=== PATIENT | female | born 1965 | race Caucasian/White ===

== ENCOUNTER 2018-10-13 15:16 | Emergency (ER) | payer OTHER ==
[2018-10-13 15:51] VITALS: BP 147/92
--- NOTE | 2018-10-13 16:26 | UC ---
General HPI - HPI Summary HPI Summary: pt complains of a 1 week history of productive cough. she states that her ears have been hurting her as well. her kids have been sick. she used her daughter' s inhaler and spacer. it has provided her with some benefit. - History of Current Complaint Chief Complaint: UCRespiratory Stated Complaint: COUGH,CHEST CONGESTION Hx Obtained From: Patient Hx Last Menstrual Period: 07/19/12 Timing: Constant Onset Severity: Mild Current Severity: Mild Pain Intensity: 5 - Allergy/Home Medications Allergies/Adverse Reactions: Allergies Allergy/AdvReac Type Severity Reaction Status Date / Time No Known Allergies Allergy Verified 10/13/18 15:47 Home Medications: Home Medications ALPRAZolam [Xanax] 1 mg DAILY PRN 10/13/18 [History Confirmed 10/13/18] Atorvastatin* [Lipitor*] 20 mg PO QPM 10/13/18 [History Confirmed 10/13/18] PMH/Surg Hx/FS Hx/Imm Hx Previously Healthy: Yes - Surgical History Surgical History: Yes Surgery Procedure, Year, and Place: T&A, RIGHT LEG FRACTURE REPAIR - Social History Alcohol Use: None Substance Use Type: None Smoking Status (MU): Former Smoker Review of Systems All Other Systems Reviewed And Are Negative: Yes Constitutional: Positive: Negative Skin: Positive: Negative Eyes: Positive: Negative ENT: Positive: Sore Throat, Ear Ache, Sinus Congestion Respiratory: Positive: Cough Cardiovascular: Positive: Negative Gastrointestinal: Positive: Negative Genitourinary: Positive: Negative Motor: Positive: Negative Neurovascular: Positive: Negative Musculoskeletal: Positive: Negative Neurological: Positive: Negative Psychological: Positive: Negative Is Patient Immunocompromised?: No Physical Exam - Summary Physical Exam Summary: pt presents for evaluation of her impressive right ear pain and Triage Information Reviewed: Yes Appearance: Well-Appearing, No Pain Distress, Well-Nourished Vital Signs: Initial Vital Signs Temp 98.2 F 10/13/18 15:48 Pulse 86 10/13/18 15:48 Resp 16 10/13/18 15:48 BP 147/92 10/13/18 15:48 Pulse Ox 99 10/13/18 15:48 Vital Signs Reviewed: Yes Eye Exam: Normal ENT: Positive: TM bulging - right, TM dull, TM red - right much worse than left Neck exam: Normal Respiratory: Positive: Rhonchi - very mild and intermittent, Other: - no respiratory distress Cardiovascular Exam: Normal Abdominal Exam: Normal Bowel Sounds: Positive: Present Musculoskeletal Exam: Normal Neurological Exam: Normal Psychological Exam: Normal Course/Dx - Course Course Of Treatment: pt's chest xray shows no pneumonias. she had bronchitis and om. will tx with abx, prednisone, inhaler, spacer. pt encouraged to f/u wi pcp. - Diagnoses Provider Diagnosis: Bronchitis, Otitis media Discharge - Sign-Out/Discharge Documenting (check all that apply): Patient Departure All imaging exams completed and their final reports reviewed: Yes - Discharge Plan Condition: Critical Disposition: HOME Prescriptions: Albuterol HFA INHALER* [Ventolin HFA Inhaler*] 2 puff INH Q4H PRN #1 mdi PRN Reason: Wheezing Azithromyxin TATYANA (NF) [Z-Tatyana (Zithromax) 250 mg tabs #6] 2 tab PO .TODAY, THEN 1 DAILY #6 tab predniSONE TAB* [Deltasone 20 MG TAB*] 60 mg PO DAILY #12 tab Patient Education Materials: Ear Infection (ED), Acute Bronchitis (ED) Forms: *Work Release Referrals: Lion Sharp MD [Primary Care Provider] - Additional Instructions: Take all medications as previously instructed. it is important to follow up with your primary care physician. Use the inhaler with spacer as instructed. - Billing Disposition and Condition Condition: CRITICAL Disposition: Home
== END 2018-10-13 17:01 | disposition home or self-care (01) ==
LOC: UCCORT 15:16
DX: J40 Bronchitis, not specified as acute or chronic (principal); H66.91 Otitis media, unspecified, right ear; Z87.891 Personal history of nicotine dependence
CPT/HCPCS: 71046; 99202; G0463

== ENCOUNTER 2018-10-18 18:20 | Emergency (ER) | payer OTHER ==
[2018-10-18] MEDS ORDERED: NS 0.9% 1000 ML** 1,000 ML IV ONE (18:25)
--- NOTE | 2018-10-18 18:26 | UC ---
UC General HPI - HPI Summary HPI Summary: 52-year-old woman comes in with a chief complaint of near syncope shortness of breath and chest tightness. Patient is sick for more than a week she was on antibiotics. Still feeling quite weak and today she went to work where she almost passed out. On the way here she almost passed out in our waiting room she almost passed out. When she stands up it makes it worse when she lays down makes it better. She's also been short of breath some chest tightness. - History of Current Complaint Stated Complaint: DIFFICULTY BREATHING Time Seen by Provider: 10/18/18 18:22 Hx Last Menstrual Period: 07/19/12 - Allergy/Home Medications Allergies/Adverse Reactions: Allergies Allergy/AdvReac Type Severity Reaction Status Date / Time No Known Allergies Allergy Verified 10/18/18 18:31 PMH/Surg Hx/FS Hx/Imm Hx Previously Healthy: Yes Endocrine History: Hypothyroidism, Dyslipidemia - Surgical History Surgical History: Yes Surgery Procedure, Year, and Place: T&A, RIGHT LEG FRACTURE REPAIR - Family History Known Family History: Positive: Non-Contributory - Social History Alcohol Use: None Substance Use Type: None Smoking Status (MU): Former Smoker Review of Systems All Other Systems Reviewed And Are Negative: Yes Constitutional: Positive: Fatigue, Other - SEE HPI Skin: Positive: Negative Eyes: Positive: Negative ENT: Positive: Negative Respiratory: Positive: Shortness Of Breath Cardiovascular: Positive: Chest Pain Gastrointestinal: Positive: Negative Motor: Positive: Weakness - GENERALIZED Neurovascular: Positive: Negative Musculoskeletal: Positive: Negative Neurological: Positive: Negative Psychological: Positive: Negative Is Patient Immunocompromised?: No Physical Exam Triage Information Reviewed: Yes Appearance: No Pain Distress, Well-Nourished, Ill-Appearing - MILD Vital Signs Reviewed: Yes Eye Exam: Normal Eyes: Positive: Conjunctiva Clear Neck: Positive: Supple Respiratory: Positive: Lungs clear, Normal breath sounds, No respiratory distress Cardiovascular: Positive: RRR Musculoskeletal: Positive: ROM Intact Neurological: Positive: Alert Psychological: Positive: Age Appropriate Behavior Skin Exam: Normal Diagnostics - EKG Cardiac Rate: NL - AT 1827 Cardiac Rhythm: Sinus: Normal - 84BPM Ectopy: None ST Segment: Normal Course/Dx - Course Course Of Treatment: TRANSFERRED TO [facility] BY AMBULANCE. GIVEN ASA 324MG PO IN CLINIC I SPOKE WITH SUSAN IN THE [facility] - Diagnoses Provider Diagnosis: Near syncope, Hypotension, Chest pain Discharge - Sign-Out/Discharge Documenting (check all that apply): Patient Departure All imaging exams completed and their final reports reviewed: No Studies - Discharge Plan Condition: Stable Disposition: TRANS HIGHER LVL OF CARE FAC Referrals: Lion Sharp MD [Primary Care Provider] - - Billing Disposition and Condition Condition: STABLE Disposition: Trans Higher Lvl of Care Fac
[2018-10-18 19:00] VITALS: BP 109/74
[2018-10-18] MEDS ORDERED: Aspirin 81 mg CHEW TAB* 81 MG TAB.CHEW PO SCH (19:00)
[2018-10-18] MEDS ORDERED: Aspirin 81 mg CHEW TAB* 81 MG TAB.CHEW ONE (19:20)
== END 2018-10-18 18:55 | disposition short-term general hospital (02) ==
LOC: UCCORT 18:20
DX: R55 Syncope and collapse (principal); I95.9 Hypotension, unspecified; R07.9 Chest pain, unspecified; Z87.891 Personal history of nicotine dependence
CPT/HCPCS: 93005; 99213; A9270-GY; G0463

== ENCOUNTER 2019-01-15 11:58 | Emergency (ER) | payer OTHER ==
[2019-01-15 13:28] VITALS: BP 144/73
--- NOTE | 2019-01-15 13:45 | UC ---
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 Mid-abd cramping since yesterday. Since last night around 1900 pt noticed more heavy bleeding and feeling light-headed (denies syncope); changed pads x3 yesterday david. Since 0700 today pt states she's going thru tampon/pad about every hour. " -here w/ her -works in a [employer] w/ heavy machinery, sharp objects. areas of high heat. -feels slightly lightheaded when standing up but not always -no clotting +uterine fibroid hx. -feels like menstrual cramps -no rashes -no Fhx AIRPLANE TUBE BUILDER or endoemtrial ca - History Of Current Complaint Chief Complaint: UCAbdominalPain Stated Complaint: PERSONAL Time Seen by Provider: 01/15/19 13:30 Hx Last Menstrual Period: 01/13/19 Pain Intensity: 5 - Allergies/Home Medications Allergies/Adverse Reactions: Allergies Allergy/AdvReac Type Severity Reaction Status Date / Time No Known Allergies Allergy Verified 01/15/19 13:16 PMH/Surg Hx/FS Hx/Imm Hx Previously Healthy: Yes Endocrine History: Thyroid Disease, Dyslipidemia Psychological History: Anxiety - Surgical History Surgical History: Yes Surgery Procedure, Year, and Place: T&A, RIGHT LEG FRACTURE REPAIR - Family History Known Family History: Positive: Other - no AIRPLANE TUBE BUILDER cancer, Non-Contributory Negative: Blood Disorder - Social History Alcohol Use: None Substance Use Type: None Smoking Status (MU): Former Smoker Review of Systems All Other Systems Reviewed And Are Negative: Yes Constitutional: Positive: Negative, Fatigue - slight. Negative: Fever, Chills Skin: Positive: Negative. Negative: Rash Eyes: Positive: Negative ENT: Positive: Negative. Negative: Sore Throat, Ear Ache, Sinus Congestion, Sinus Pain/Tenderness Respiratory: Positive: Negative. Negative: Shortness Of Breath, Cough Cardiovascular: Positive: Negative. Negative: Palpitations, Chest Pain Gastrointestinal: Positive: Abdominal Pain - lower abd menstrual cramping. Negative: Vomiting, Diarrhea, Nausea Genitourinary: Positive: Abnormal Bleeding. Negative: Vaginal/Penile Discharge Motor: Positive: Negative Neurovascular: Positive: Negative. Negative: Decreased Pulses Musculoskeletal: Positive: Negative. Negative: Arthralgia, Calf Tenderness Neurological: Positive: Negative, Other - see above Psychological: Positive: Negative Is Patient Immunocompromised?: No Physical Exam Appearance: Well-Appearing, No Pain Distress, Well-Nourished - very pleasant. good historian Vital Signs: Initial Vital Signs Temp 98 F 01/15/19 13:17 Pulse 65 01/15/19 13:17 Resp 16 01/15/19 13:17 BP 144/73 01/15/19 13:17 Pulse Ox 98 01/15/19 13:17 Vital Signs Reviewed: Yes Eye Exam: Normal Eyes: Positive: Conjunctiva Clear ENT Exam: Normal ENT: Positive: Pharynx normal, TMs normal Neck exam: Normal Neck: Positive: Supple, Nontender, No Lymphadenopathy Respiratory Exam: Normal Respiratory: Positive: Lungs clear, Normal breath sounds, No respiratory distress, No accessory muscle use. Negative: Crackles, Rhonchi, Stridor, Wheezing Cardiovascular Exam: Normal Cardiovascular: Positive: RRR, No Murmur, Pulses Normal, Brisk Capillary Refill Abdomen Description: Positive: No Organomegaly, Other: - mild suprapubic tenderness.. Negative: CVA Tenderness (R), CVA Tenderness (L), Distended, Guarding, Hernia @, Hepatomegaly, McBurney's Point Tenderness, Peritoneal Signs , Pulsatile Mass, Splenomegaly Bowel Sounds: Positive: Present Musculoskeletal Exam: Normal Neurological Exam: Normal Psychological Exam: Normal Skin Exam: Normal Skin: Negative: Rashes Complaint Female Dx - Course Course Of Treatment: Discussed going to ER for further eval w/ US but she feels strongly about not going. 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 she agrees to go to ER with lightheadedmnesssyncope/wprsening bleeding -says she has a responsible teen at home and mom near by. will be going to work. - Differential Dx/Diagnosis Differential Diagnosis/HQI/PQRI: Urinary Tract Infection, Other - abnml uterine bleeding Provider Diagnosis: Abnormal uterine bleeding Discharge ED - Sign-Out/Discharge Documenting (check all that apply): Patient Departure All imaging exams completed and their final reports reviewed: No Studies - Discharge Plan Condition: Stable Disposition: HOME Patient Education Materials: Dysfunctional Uterine Bleeding (ED) Forms: *Work Release Referrals: Lion Sharp MD [Primary Care Provider] - Jesus Bolton MD [Medical Doctor] - 2 Days Additional Instructions: We discussed possibly going to the ER for further evaluation. However, you voiced your preference not to. Please go to the ER (via another ambulette driver or ambulance) if you have more lightheaded or dizzy or if you pass out or your bleeding worsens, become pale, clammy, sweaty. -I am giving you the name of a AIRPLANE TUBE BUILDER to call on Thursday for further evaluation. You will need and ultrasound and an endometrial biopsy. - Billing Disposition and Condition Condition: STABLE Disposition: Home
== END 2019-01-15 14:06 | disposition home or self-care (01) ==
LOC: UCCORT 11:58
DX: N93.8 Other specified abnormal uterine and vaginal bleeding (principal); R10.30 Lower abdominal pain, unspecified; Z87.891 Personal history of nicotine dependence
CPT/HCPCS: 99211; G0463

== ENCOUNTER 2019-02-23 14:14 | Emergency (ER) | payer OTHER ==
--- OUTSIDE RECORDS SUMMARY | 2019-02-23 14:23 | XMS REPORT | Summary of Care ---
:1965 Author Organization [facility] Address [address] [place] [address] Care Team Providers Name Role Phone Lion Sharp MD Primary Care Provider Reason for Referral Refer to Department Only (Routine) Status Reason Specialty Diagnoses / Referred By Referred To Procedures Contact Contact Pending Review budder Diagnoses Post-menopausal bleeding Agata Rios, DIRECTOR OF SPECIAL SERVICES [address] [place] [address] Reason for Visit Reason Comments ER F/U pt [place] [facility] [place] for heavy vaginal bleeding 2-3 days, has not had a period in over a year in a half. Encounter Details Date Type Department Care Team Description 01/18/2019 Office Visit [facility] Agata Rios, Post-menopausal Practice DIRECTOR OF SPECIAL SERVICES bleeding (Primary Dx) [address] [place] [address] [phone] Allergies Active Allergy Reactions Severity Noted Date Comments Amoxicillin 05/26/2007 Cefuroxime Rash 05/26/2007 Niacin Rash, Respiratory Reaction, 06/08/2008 Swelling Paroxetine Hydrochloride 05/26/2007 documented as of this encounter (statuses as of 01/18/2019) Medications Medication Sig Dispensed Refills Start Date End Date Status atorvastatin (LIPITOR) Take 1 Tab by 90 Tab 3 07/06/2018 Active 40 MG Oral Tab mouth DAILY. ALPRAZolam (XANAX) 1 TAKE 1 TABLET BY 30 Tab 0 09/21/2018 Active MG Oral Tab MOUTH ONCE DAILY FOR ANXIETY. MAX DAILY DOSE 1 fluoxetine (PROZAC) 20 TAKE 1 CAPSULE 60 Cap 5 11/16/2018 Active MG Oral BY MOUTH TWICE CapIndications: DAILY Dysthymic disorder levothyroxine Take 1 Tab by 90 Tab 5 11/12/2018 11/12/2019 Active (SYNTHROID\\UNITHROID) mouth BEFORE 100 MCG Oral Tab BREAKFAST. fluoxetine (PROZAC) 20 Take 1 Cap by 60 Cap 5 11/15/2018 Active MG Oral Cap mouth TWICE DAILY. ibuprofen (MOTRIN) 800 Take 1 Tab by 90 Tab 5 11/30/2018 Active MG Oral Tab mouth THREE TIMES DAILY. with food documented as of this encounter (statuses as of 01/18/2019) Active Problems Problem Noted Date BMI 39.0-39.9,adult 12/28/2013 Hypertriglyceridemia 06/08/2008 Unspecified sinusitis (chronic) 05/26/2007 Hypothyroidism 05/26/2007 Depression w/anxiety 05/26/2007 Dyslipidemia 05/26/2007 Lumbar disc disease 05/26/2007 documented as of this encounter (statuses as of 01/18/2019) Resolved Problems Problem Noted Date Resolved Date Cervicalgia 05/26/2007 02/01/2010 Overview: Right sided neck pain Pain in joint, shoulder region 05/26/2007 02/01/2010 Overview: Right sided shoulder pain Nicotine dependence 05/26/2007 02/01/2010 documented as of this encounter (statuses as of 01/18/2019) Immunizations Name Administration Dates Next Due Influenza (IM) Preservative Free 07/06/2018, 02/13/2009 Influenza Virus Vaccine - Whole 03/12/2005 TETANUS & DIPHTHERIA TOXOID (OVER 7 YRS) 07/12/1997 documented as of this encounter Social History Tobacco Use Types Packs/Day Years Used Date Former Smoker Quit: 07/02/2001 Smokeless Tobacco: Never Used Alcohol Use Drinks/Week oz/Week Comments No Sex Assigned at Date Recorded Not on file Job Start Date Occupation Industry Not on file Not on file Not on file Travel History Travel Start Travel End No recent travel history available. documented as of this encounter Last Filed Vital Signs Vital Sign Reading Time Taken Comments Blood Pressure 122/80 01/18/2019 10:45 AM EDT Pulse 74 01/18/2019 10:45 AM EDT Temperature - - Respiratory Rate - - Oxygen Saturation 96% 01/18/2019 10:45 AM EDT Inhaled Oxygen Concentration - - Weight 108.9 kg (240 lb) 01/18/2019 10:45 AM EDT Height 167.6 cm (5' 6") 01/18/2019 10:45 AM EDT Body Mass Index 38.74 01/18/2019 10:45 AM EDT documented in this encounter Patient Instructions Patient InstructionsAgata Rios NP - 01/18/2019 11:00 AM EDTPlease get your blood work done now - I have put the blood count as a stat order so I will call you with these results. You have opted not to go to the ER. Referral in place for gynecology - make this appointment. If you develop any worsening symptoms of dizziness, lightheadedness, loss of vision, increasing headache, confusion, passing out, cold clammy skin, or any other concerning symptoms, please go immediately to the ER. Please have someone pick you up - you should not be driving if lightheaded. documented in this encounter Progress Notes Agata Rios NP - 01/18/2019 11:00 AM EDT PATIENT: Sally Mckoy : 1965 DATE OF SERVICE: 01/18/2019 CHIEF COMPLAINT: Chief Complaint Patient presents with ER F/U pt [place] [facility] [place] for heavy vaginal bleeding 2-3 days, has not had a period in over a year in a half. Subjective HISTORY OF PRESENT ILLNESS: Sally Mckoy is a 53-y.o. female. HPI Went to urgent care thursday for vaginal bleeding - 1.5 years post menopausal. Bleeding since , was heavy, had to leave work because she bled through her clothes, going through 1 tampon/pad every hour. Urgent care wanted her to go to ER but she refused. Today she is feeling exhausted, has not been sleeping well since Thursday. Abdominal cramping, havingto go to the bathroom every hour to change her pad, bad headache x4 days, she feels unfocused, "out of it". She states the only time she has ever bled this heavily was when she had a miscarriage in the past. Today she is not bleeding as heavily, changing pads every 3-4 hours. She is unsure if she has pallor. A little bit of dizziness/lightheadedness now. When she stands up (not every time) she will get a headrush. Bending over to pick something up she gets the headrush. She has a history of uterine fibroids in the past (20+ years ago). Past Medical History: Diagnosis Date Cervicalgia 05/26/2007 Right sided neck pain Depression w/anxiety 05/26/2007 Hyperlipidemia 05/26/2007 Lumbar disc disease 05/26/2007 Nicotine dependence 05/26/2007 STOPPED 8YRS AGO Osteoarthrosis, unspecified whether generalized or localized, lower leg Other abnormal Papanicolaou smear of cervix and cervical HPV(795.09) 1991 Pain in joint, shoulder region 05/26/2007 Right sided shoulder pain , first 36 Unspecified hypothyroidism 05/26/2007 Unspecified sinusitis (chronic) 05/26/2007 Family History Problem Relation Age of Onset High Cholesterol Mother Respiratory Mother Heart Father High Cholesterol Father Respiratory Father High Cholesterol Brother Current Outpatient Medications Medication Sig ALPRAZolam (XANAX) 1 MG Oral Tab TAKE 1 TABLET BY MOUTH ONCE DAILY FOR ANXIETY. MAX DAILY DOSE 1 atorvastatin (LIPITOR) 40 MG Oral Tab Take 1 Tab by mouth DAILY. fluoxetine (PROZAC) 20 MG Oral Cap TAKE 1 CAPSULE BY MOUTH TWICE DAILY fluoxetine (PROZAC) 20 MG Oral Cap Take 1 Cap by mouth TWICE DAILY. ibuprofen (MOTRIN) 800 MG Oral Tab Take 1 Tab by mouth THREE TIMES DAILY. with food levothyroxine (SYNTHROID\\UNITHROID) 100 MCG Oral Tab Take 1 Tab by mouth BEFORE BREAKFAST. No current facility-administered medications for this visit. Allergies Allergen Reactions Amoxicillin Cefzil [Cefuroxime] Rash Niacin Rash, Respiratory Reaction and Swelling Paxil [Paroxetine Hydrochloride] Social History Socioeconomic History Marital status: Spouse name: Not on file Number of children: Not on file Years of education: Not on file Highest education level: Not on file Occupational History Not on file Social Needs Financial resource strain: Not on file Food insecurity: Worry: Not on file Inability: Not on file Transportation needs: Medical: Not on file Non-medical: Not on file Tobacco Use Smoking status: Former Smoker Last attempt to quit: 07/02/2001 Years since quittin.5 Smokeless tobacco: Never Used Substance and Sexual Activity Alcohol use: No Drug use: No Sexual activity: Yes Partners: Male Lifestyle Physical activity: Days per week: Not on file Minutes per session: Not on file Stress: Not on file Relationships Social connections: Talks on phone: Not on file Gets together: Not on file Attends latter-day service: Not on file Active member of club or organization: Not on file Attends meetings of clubs or organizations: Not on file Relationship status: Not on file Intimate partner violence: Fear of current or ex partner: Not on file Emotionally abused: Not on file Physically abused: Not on file Forced sexual activity: Not on file Other Topics Concern Back Care Not Asked Bike Helmet Not Asked Blood Transfusions Not Asked Caffeine Concern Yes Comment: 1 c coffee/day and 1 coke /day Exercise No Hobby Hazards Not Asked International Travel Not Asked Service Not Asked Occupational Exposure Not Asked Seat Belt Not Asked Self-Exams Not Asked Sleep Concern Not Asked Special Diet Not Asked Stress Concern Not Asked Weight Concern Yes Social History Narrative 7 yr old child Lives in [facility] Over the last 2 weeks, have you been feeling down, depressed, anxious, or hopeless?: 0 Over the past 2 weeks, have you felt little interest or pleasure in doing things ?: 0 REVIEW OF SYSTEMS: Review of Systems Constitutional: Positive for chills, fever (99-100) and malaise/fatigue. Negative for diaphoresis. Eyes: Negative for blurred vision and double vision. Respiratory: Negative for shortness of breath. Cardiovascular: Negative for chest pain and palpitations. Gastrointestinal: Positive for abdominal pain (lower abd cramping) and nausea. Negative for blood instool, constipation, diarrhea and vomiting. Genitourinary: Negative for dysuria, frequency, hematuria and urgency. Musculoskeletal: Negative for back pain, joint pain and myalgias. Neurological: Positive for dizziness, tingling (tips of finger when arm is above her head) and headaches. Negative for tremors, sensory change, speech change and weakness. Psychiatric/Behavioral: Negative for depression. The patient has insomnia. The patient is not nervous/anxious. Objective PHYSICAL EXAM: VITALS: BP 122/80 (BP Location: Left arm, Patient Position: Sitting) | Pulse 74 | Ht 5' 6" (1.676m) | Wt 240 lb (108.9 kg) | SpO2 96% | BMI 38.74 kg/m Body mass index is 38.74 kg/m. Physical Exam Constitutional: She is oriented to person, place, and time. Vital signs are normal. She is cooperative. Patient appears sleepy/tired HENT: Right Ear: Hearing, tympanic membrane, external ear and ear canal normal. Left Ear: Hearing, tympanic membrane, external ear and ear canal normal. Mouth/Throat: Uvula is midline, oropharynx is clear and moist and mucous membranes are normal. Mucous membranes are not pale and not dry. Eyes: Pupils are equal, round, and reactive to light. Conjunctivae and EOM are normal. No paleness in lashline Neck: No thyroid mass and no thyromegaly present. Cardiovascular: Normal rate, regular rhythm, normal heart sounds and intact distal pulses. Exam reveals no gallop and no friction rub. No murmur heard. Pulmonary/Chest: Effort normal and breath sounds normal. No respiratory distress. Abdominal: Soft. Normal appearance and bowel sounds are normal. There is no hepatosplenomegaly. There is tenderness in the right lower quadrant, suprapubic area and left lower quadrant. There is no rigidity, no rebound, no guarding, no CVA tenderness, no tenderness at McBurney's point and negative De La Torre's sign. Lymphadenopathy: Head (right side): No submental, no submandibular, no tonsillar, no preauricular and no posterior auricular adenopathy present. Head (left side): No submental, no submandibular, no tonsillar, no preauricular and no posterior auricular adenopathy present. She has no cervical adenopathy. Right: No supraclavicular adenopathy present. Left: No supraclavicular adenopathy present. Neurological: She is oriented to person, place, and time. She has normal reflexes. Skin: There is pallor. Nursing note and vitals reviewed. POCT Hgb - 12.6 ASSESSMENT / IMPRESSION: ICD-9-CM ICD-10-CM 1. Post-menopausal bleeding 627.1 N95.0 THYROID STIMULATING HORMONE FREE T4 T3, TOTAL REFER TO OB / HEALTHCARE ECONOMICS MANAGER HEMOGLOBIN (AMB POCT) CBC NO DIFFERENTIAL CBC NO DIFFERENTIAL T3, TOTAL FREE T4 THYROID STIMULATING HORMONE CANCELED: CBC WITH DIFFERENTIAL CANCELED: HEMOGLOBIN & HEMATOCRIT POCT CANCELED: CBC NO DIFFERENTIAL Plan 1. Post-menopausal bleeding - THYROID STIMULATING HORMONE; Future - FREE T4; Future - T3, TOTAL; Future - REFER TO OB / HEALTHCARE ECONOMICS MANAGER; Future - HEMOGLOBIN (AMB POCT) - CBC NO DIFFERENTIAL; Future - CBC NO DIFFERENTIAL - T3, TOTAL - FREE T4 - THYROID STIMULATING HORMONE -Blood work today. Hgb POCT is normal at 12.6 -Referral to gynecology for pelvic ultrasound and endometrial biopsy. -Warning signs to go to ER. Author: Agata Rios NP 01/18/2019 13:06 documented in this encounter Plan of Treatment Name Type Priority Associated Diagnoses Date/Time THYROID STIMULATING Lab Routine Post-menopausal 01/18/2019 12:07 PM HORMONE bleeding EDT FREE T4 Lab Routine Post-menopausal 01/18/2019 12:07 PM bleeding EDT T3, TOTAL Lab Routine Post-menopausal 01/18/2019 12:07 PM bleeding EDT CBC NO DIFFERENTIAL Lab Routine Post-menopausal 01/18/2019 12:07 PM bleeding EDT Name Type Priority Associated Diagnoses Order Schedule THYROID STIMULATING Lab Routine Post-menopausal bleeding Expected: 2018 HORMONE (Approximate), Expires: 01/19/2020 FREE T4 Lab Routine Post-menopausal bleeding Expected: 01/18/2019 (Approximate), Expires: 01/19/2020 T3, TOTAL Lab Routine Post-menopausal bleeding Expected: 01/18/2019 (Approximate), Expires: 01/19/2020 HEMOGLOBIN (AMB POCT) POCT Routine Post-menopausal bleeding Ordered: 2018 CBC NO DIFFERENTIAL Lab Routine Post-menopausal bleeding Expected: 2018 (Approximate), Expires: 01/19/2020 Name Type Priority Associated Diagnoses Order Schedule REFER TO OB / HEALTHCARE ECONOMICS MANAGER Referral Routine Post-menopausal bleeding Expected: 01/18, Expires: 01/19/2020 Health Maintenance Due Date Last Done Comments PAP SMEAR 11/23/2014 11/24/2011, 11/24/2011, 02/01/2010, Additional history exists MAMMOGRAM (SCREENING) 12/28/2014 12/28/2013, 12/28/2013, 06/29/2012, Additional history exists COLONOSCOPY SCREENING 12/25/2015 ZOSTER IMMUNIZATION SERIES 12/25/2015 (1 of 2) INFLUENZA VACCINE (#1) 2019 07/06/2018, 02/13/2009 DIABETES SCREENING 11/12/2019 11/11/2018, 02/16/2018, 12/28/2013 DEPRESSION SCREENING 01/19/2020 01/18/2019 LIPID DISORDER SCREENING 11/12/2023 11/11/2018, 07/06/2018, 06/17/2018, Additional history exists HPV IMMUNIZATION SERIES Aged Out No longer eligible based on patient's age to complete this topic MENINGOCOCCAL VACCINE IMM Aged Out No longer eligible based on patient's age to complete this topic PNEUMOCOCCAL 0-64 YRS Aged Out No longer eligible based on patient's age to complete this topic documented as of this encounter Goals Goal Patient Goal Associated Recent Patient-Stated? Author Type Problems Progress Depression Depression No tash Sutherland (PHQ-9) MADY Massey total score < 5 Note: This is an individualized treatment (depression) goal for Sally Mckoy: Displayed above is your goal for a depression screening (PHQ-9) score that would indicate good control of your depression. Keep a regular sleep schedule Lifestyle No Shilpa Sutherland FNP Note: This is an individualized lifestyle goal for Sally Mckoy: Please maintain a regular sleep schedule. This may help with some symptoms of depression. Take all prescribed medications as Self-management No Shilpa Sutherland FNP directed Note: This is an individualized self-management goal for Sally Mckoy: Please take all prescribed medications as directed. 1. Do not skip doses. If you cannot afford your medications, talk with your doctor. 2. Use a pill reminder system such as a pill box if needed. Your pharmacist can help you with this. 3. Contact your Pharmacy 5 days before your medication runs out. If you cannot take your medications for any reasons, talk with your doctor. 4. Please bring all of your medication bottles and inhalers (or a list of all your medications/inhalers) with you to every visit. Potential barriers to meeting all of your care plan goals will continue to be addressed on an ongoing basis. documented as of this encounter Results Not on filedocumented in this encounter Visit Diagnoses Diagnosis Post-menopausal bleeding - Primary Postmenopausal bleeding documented in this encounter Guarantor Name Account Type Relation to Date of Phone Billing Patient Address NimeshSally blank Personal/Family 1965 [address] (Home) [place], [place] [phone] (Work) documented as of this encounter
[2019-02-23 14:34] VITALS: BP 155/78
--- NOTE | 2019-02-23 15:40 | ED ---
Headache - HPI Summary HPI Summary: 53 yr old female with the complaint of three to four days of not feeling right. She has had headache that is generalized, and 6/10, gradual onset, not going away. It is associated with some light sensitivity and some dizziness at times. She also complains of chest pain, onset Thursday when watching football and started right side of chest and moved to the left, and now into her left shoulder. pain worse with touching . Denies SOB. Denies diaphoresis. She also complains of some little bumps on the lateral left wrist around distal radius. No pain there. She denies syncope, but has felt light headed at times. She denies change in vision, speech, hearing, swallowing. She denies focal weakness. Denies focal numbness. She has no other complaints at this time. - History Of Current Complaint Chief Complaint: UCGeneralIllness Stated Complaint: SKIN COMPLAINT,WELCH,DIZZY,LEFT SHOULDER PAIN Time Seen by Provider: 02/23/19 14:58 Hx Last Menstrual Period: last month after a year and a half not having one - Allergies/Home Medications Allergies/Adverse Reactions: Allergies Allergy/AdvReac Type Severity Reaction Status Date / Time No Known Allergies Allergy Verified 02/23/19 14:34 PMH/Surg Hx/FS Hx/Imm Hx Endocrine/Hematology History: Reports: Hx Thyroid Disease Denies: Hx Diabetes Cardiovascular History: Denies: Hx Hypertension Respiratory History: Denies: Hx Asthma, Hx Chronic Obstructive Pulmonary Disease (COPD) GI History: Denies: Hx Ulcer - Surgical History Surgery Procedure, Year, and Place: T&A, RIGHT LEG FRACTURE REPAIR Infectious Disease History: No Infectious Disease History: Denies: Hx Hepatitis, Hx Human Immunodeficiency Virus (HIV), Traveled Outside the [place] in Last 30 Days - Family History Known Family History: Positive: Other - no ENZYME CHEMIST cancer, Non-Contributory Negative: Blood Disorder - Social History Occupation: Employed Full-time Alcohol Use: None Substance Use Type: Reports: None Smoking Status (MU): Former Smoker Review of Systems Constitutional: Negative Positive: Chest Pain. Negative: Palpitations Negative: Shortness Of Breath, Cough Negative: Abdominal Pain, Vomiting, Diarrhea, Nausea Genitourinary: Negative Negative: Edema Skin: Negative Positive: Headache All Other Systems Reviewed And Are Negative: Yes Physical Exam Triage Information Reviewed: Yes Vital Signs On Initial Exam: Initial Vitals Temp Pulse Resp BP Pulse Ox 98.7 F 64 18 155/78 100 02/23/19 14:25 02/23/19 14:25 02/23/19 14:25 02/23/19 14:25 02/23/19 14:25 Vital Signs Reviewed: Yes Appearance: Positive: Well-Appearing, No Pain Distress Skin: Positive: Warm, Skin Color Reflects Adequate Perfusion Head/Face: Positive: Normal Head/Face Inspection Eyes: Positive: EOMI, SANTINO ENT: Positive: Normal ENT inspection Neck: Positive: Nontender Respiratory/Lung Sounds: Positive: Clear to Auscultation, Breath Sounds Present Cardiovascular: Positive: RRR. Negative: Murmur Abdomen Description: Negative: Distended Musculoskeletal: Positive: Strength/ROM Intact Neurological: Positive: Sensory/Motor Intact, Alert, Oriented to Person Place, Time, CN Intact II-III, Normal Gait, Speech Normal Psychiatric: Positive: Normal - Nader Coma Scale Best Eye Response: 4 - Spontaneous Best Motor Response: 6 - Obeys Commands Best Verbal Response: 5 - Oriented Coma Scale Total: 15 Diagnostics - Vital Signs Vital Signs Temp Pulse Resp BP Pulse Ox 02/23/19 14:25 98.7 F 64 18 155/78 100 - Laboratory Lab Statement: Any lab studies that have been ordered have been reviewed, and results considered in the medical decision making process. - Radiology chest pa lat Radiology Interpretation Completed By: Radiologist - nad - EKG ekg Cardiac Rate: NL EKG Rhythm: Sinus Rhythm ST Segment: Normal Ectopy: None Headache Course/Dx - Course Course Of Treatment: 53 yr old with chest pain, dizziness, headache, shoulder pain. Signed out AMA. Refused ambulance transfer. Her mother is driving her. - Diagnoses Provider Diagnoses: Chest pain, Dizziness, Hypertension, Headache Discharge ED - Sign-Out/Discharge Documenting (check all that apply): Patient Departure All imaging exams completed and their final reports reviewed: Yes - Discharge Plan Condition: Good Disposition: AGAINST MEDICAL ADVICE Referrals: Lion Sharp MD [Primary Care Provider] - - Billing Disposition and Condition Condition: GOOD Disposition: Against Medical Advice
== END 2019-02-23 16:30 | disposition left against medical advice (07) ==
LOC: UCCORT 14:14
DX: R51 Headache (principal); R07.9 Chest pain, unspecified; R42 Dizziness and giddiness; I10 Essential (primary) hypertension; M25.512 Pain in left shoulder; Z87.891 Personal history of nicotine dependence
CPT/HCPCS: 71046; 93005; 99212; G0463

== ENCOUNTER 2019-03-21 19:27 | Emergency (ER) | payer OTHER ==
--- OUTSIDE RECORDS SUMMARY | 2019-03-21 19:34 | XMS REPORT | Summary of Care ---
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, subsequent [address] encounter (Primary Dx) [place] [address] [place] [address] [phone] Allergies Active Allergy Reactions Severity Noted Date Comments Amoxicillin 05/26/2007 Cefuroxime Rash 05/26/2007 Niacin Rash, Respiratory Reaction, 06/08/2008 Swelling Paroxetine Hydrochloride 05/26/2007 documented as of this encounter (statuses as of 02/24/2019) Medications Medication Sig Dispensed Refills Start Date [...] as of this encounter (statuses as of 02/24/2019) Active Problems Problem Noted Date BMI 39.0-39.9,adult 12/28/2013 Hypertriglyceridemia 06/08/2008 Unspecified sinusitis (chronic) 05/26/2007 Hypothyroidism 05/26/2007 Depression w/anxiety 05/26/2007 Dyslipidemia 05/26/2007 Lumbar disc disease 05/26/2007 documented as of this encounter (statuses as of 02/24/2019) Resolved Problems Problem Noted Date Resolved Date Cervicalgia 05/26/2007 02/01/2010 Overview: Right sided neck pain Pain in joint, shoulder region 05/26/2007 02/01/2010 Overview: Right sided shoulder pain Nicotine dependence 05/26/2007 02/01/2010 documented as of this encounter (statuses as of 02/24/2019) Immunizations Name Administration Dates Next Due Influenza [...] Sign Reading Time Taken Comments Blood Pressure 150/82 02/24/2019 8:55 AM EDT Pulse 64 02/24/2019 8:55 AM EDT Temperature 36.5 02/24/2019 8:55 AM EDT C (97.7 F) Respiratory Rate - - Oxygen Saturation 99% 02/24/2019 8:55 AM EDT Inhaled Oxygen Concentration - - Weight - - Height 167.6 cm (5' 6") 02/24/2019 8:55 AM EDT Body Mass Index - - documented in this encounter Patient Instructions Patient InstructionsSarithaAgata khanSARIKA - 02/24/2019 9:00 AM EDT Ibuprofen 600 mg every 6-8 hours as needed for pain. Take with food. Heating pad/cold packs to the area. Rest and avoid aggravating activities. Muscle Strain ACADEMIC DEPARTMENT CHAIR: A muscle strain is a twist, pull, or tear of a muscle or tendon. A tendon is a strong elastic tissue that connects a muscle to a bone. Common symptoms include the following: Bruised skin on the area of your injured muscle Muscle soreness, cramps, or spasms Little or stiff muscle movement, or loss of muscle strength Swelling in the area of the injury Muscle pain that gets worse with activity, or pain that moves or spreads to another body area Crepitus (crackling sound or grating feeling) when you move your muscle Seek immediate care for the following symptoms: Sudden loss of feeling or movement in your injured muscle Contact your healthcare provider if: Your pain and swelling worsen or do not go away. You have questions or concerns about your condition or care. Treatment for a muscle strain may include any of the following: NSAIDs , such as ibuprofen, help decrease swelling, pain, and fever. This medicine is availablewith or without a doctor's order. NSAIDs can cause stomach bleeding or kidney problems in certain people. If you take blood thinner medicine, always ask your healthcare provider if NSAIDs are safe for you. Always read the medicine label and follow directions. Muscle relaxers help decrease pain and muscle spasms, and relax your muscles. Steroid medicine may be given to decrease pain and inflammation. Local anesthetic is medicine used to numb the area for a short time. This is often used if youhave a muscle strain in your back. Physical therapy exercises may help improve movement and decrease pain. Physical therapy can also help improve strength and decrease your risk for loss of function. Surgery may be needed if your muscle strain does not heal after 6 months of treatment. Surgerymay be done to drain blood that has pooled in your muscle. If your tendon was torn off of the bone, it may be put back with surgery. Manage your symptoms: Rest your muscle to allow your injury to heal. When the pain decreases, begin normal, slow movements. For mild and moderate muscle strains, rest your muscles for about 2 days. Rest for 10 to 14 days if you have a severe muscle strain. You may need to use crutches if your muscle strain is in yourlegs. Apply ice on your injured area for 15 to 20 minutes every hour or as directed. Use an ice pack, or put crushed ice in a plastic bag. Cover it with a towel. Ice helps prevent tissue damage and decreases swelling and pain. Use an elastic bandage as directed. Wrap the bandage around the area to decrease swelling. It should be snug, but not too tight. Elevate your injured muscle above the level of your heart as often as you can. This will help decrease swelling and pain. Prop your injured muscle on pillows or blankets to keep it elevated comfortably. Stretch and strengthen your muscles each day. Stretch for about 30 seconds , 4 times a day. Stretch the muscle until you feel a slight pull. Stop stretching if you feel pain. Start to exercise andstrengthen your muscles slowly. Increase the time and amount you exercise. Prevent another muscle strain: Always wear proper shoes when you play sports. Replace your old running shoes with new ones often if you are a runner. Use shoe inserts or arch supports to correct leg or foot problems. Ask your healthcare provider for more information on shoe supports. Do warm up and cool down exercises. Do stretching exercises before you work out or do sports activities. These exercises will help loosen and decrease stress on your muscles. Cool down and stretch after your workout. Do not stop and rest after a workout without cooling down first. Keep your muscles strong with strength training exercises. Exercises such as weight lifting and stretching exercises help keep your muscles flexible and strong. A physical therapist or technical trainer may help you with these exercises. Slowly start your exercise or sports training program. Follow your healthcare provider's directions on when to start exercising. Slowly increase time, distance, and how often you train. Sudden increases in how often you train may cause you to injure your muscle again. Follow up with your healthcare provider as directed: Write down your questions so you remember to ask them during your visits. 2016 [employer]. Information is for End User's use only and may not be sold, redistributed or otherwise used for commercial purposes. All illustrations and images included in CareNotes are the copyrighted property of [employer] or [employer]. The above information is an fish and wildlife scientific aid only. It is not intended as medical advice for individual conditions or treatments. Talk to your doctor, nurse or pharmacist before following any medical regimen to see if it is safe and effective for you. documented in this encounter Progress Notes Agata Rios NP - 02/24/2019 9:00 AM EDT PATIENT: Sally Mckoy : 1965 DATE OF SERVICE: 02/24/2019 CHIEF COMPLAINT: Chief Complaint Patient presents with Chest Pain had check xray and ekg, both normal, not SOB Muscle Pain left shoulder/arm Wrist Pain left wrist lump Subjective HISTORY OF PRESENT ILLNESS: Sally Mckoy is a 53-y.o. female. HPI Went to last night for chest pain and back pain, pain in left chest, dx with strain, was doing a lot of yard work over the weekend, very painful to move her left arm. Does repetetivie motion at herjob which aggravates it. She would like to rest and have a note for work. EKG was normal at , all tests came out normal. No shortness of breath. No diaphoresis, neck or jaw pain. Headache for a few days. did not prescribe any medications or treatments. She has been taking ibuprofen for pain. She has had a few episodes of bleeding since her last visit. Has an appointment in a couple of weeks to see her obgyn. Past Medical History: Diagnosis Date Cervicalgia 05/26/2007 [...] Last attempt to quit: 07/02/2001 Years since quittin.6 Smokeless tobacco: Never Used Substance and Sexual Activity Alcohol use: No Drug use: No Sexual activity: Yes Partners: Male Lifestyle Physical activity: Days per week: Not on file Minutes per session: Not on file Stress: Not on file Relationships Social connections: Talks on phone: Not on file Gets together: Not on file Attends jewish service: Not on file Active member of [...] Narrative 7 yr old child Lives in [facility] REVIEW OF SYSTEMS: Review of Systems Constitutional: Negative for chills, fever and malaise/fatigue. HENT: Positive for congestion. Negative for sinus pain and sore throat. Respiratory: Negative for cough and shortness of breath. Cardiovascular: Negative for chest pain and palpitations. Musculoskeletal: Positive for back pain, joint pain (see hpi) and myalgias ( left ribs). Neurological: Positive for dizziness and headaches. Negative for tingling, sensory change and weakness. Objective PHYSICAL EXAM: VITALS: BP 150/82 | Pulse 64 | Temp 97.7 F (36.5 C) (Tympanic) | Ht 5' 6" (1.676 m) | SpO2 99% | BMI 38.74 kg/m Body mass index is 38.74 kg/ m. Physical Exam Vitals signs and nursing note reviewed. Constitutional: General: She is not in acute distress. Appearance: Normal appearance. She is well-developed. Cardiovascular: Rate and Rhythm: Normal rate and regular rhythm. Heart sounds: Normal heart sounds. No murmur. No friction rub. No gallop. Pulmonary: Effort: Pulmonary effort is normal. No respiratory distress. Breath sounds: Normal breath sounds. Chest: Musculoskeletal: Arms: Neurological: Mental Status: She is alert. Psychiatric: Mood and Affect: Mood and affect normal. Speech: Speech normal. Behavior: Behavior normal. Behavior is cooperative. ASSESSMENT / IMPRESSION: ICD-9-CM ICD-10-CM 1. Muscle strain of chest wall, subsequent encounter V58.89 S29.011D 848.8 Plan 1. Muscle strain of chest wall, subsequent encounter Mainly she wants a note for work, which I have given - can go back Wednesday 02/28. Ibuprofen 600 mg every 6-8 hours as needed for pain. Take with food. Heating pad/cold packs to the area. Rest and avoid aggravating activities. Author: Agata Rios NP 02/24/2019 10:46 documented in this encounter Plan of Treatment Health Maintenance Due Date Last Done Comments [...] filedocumented in this encounter Visit Diagnoses Diagnosis Muscle strain of chest wall, subsequent encounter - Primary documented in this encounter Insurance Payer Benefit Plan / Subscriber ID Effective Dates Phone Address Type Group TERRENCE [employer] xxxxxxxxxxx 2019-Present [employer]rence [employer] Guarantor Name Account Type Relation to Date of Phone Billing Patient Address NimeshSally blank Personal/Family 1965 [address] (Home) [place], [place] [phone] (Work) documented as of this encounter
[2019-03-21 19:42] VITALS: BP 154/89
[2019-03-21] MEDS ORDERED: Ondansetron ODT TAB* 4 MG PO ONE (19:52)
--- NOTE | 2019-03-21 19:53 | UC ---
Headache HPI - HPI Summary HPI Summary: 53 yo female with 3 day hx of sinus pressure and pain/nasal congestion/frontal WELCH /photophobia and nausea no fever/chills or stiff neck - History Of Current Complaint Chief Complaint: UCHeadache Stated Complaint: HEADACHE, NAUSEA Time Seen by Provider: 03/21/19 19:38 Hx Obtained From: Patient Hx Last Menstrual Period: last month after a year and a half not having one Onset/Duration: Gradual Onset, Lasting Days - 3 Onset Of Symptoms: Gradual Initially Headache Was: Initial Pain Scale(0-10)= - 3 Currently Pain Is: Current Pain Scale(0-10)= - 6 Pain Intensity: 6 Pain Scale Used: 0-10 Numeric Timing: Constant Character: Dull, Pressure Location of Headache: Frontal Aggravating Factor(s): Position Change Allevating Factor(s): Nothing Associated Signs And Symptoms: Positive: Nausea, Sinus Pressure, Other (Noted In Comments) - photophobia. 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 SHIPYARD OPERATOR cancer, Non- Contributory Negative: Blood Disorder - Social History Alcohol Use: None Substance Use Type: None Smoking Status (MU): Former Smoker When Did the Patient Quit Smoking/Using Tobacco: 2000 Review of Systems All Other Systems Reviewed And Are Negative: Yes Constitutional: Positive: Negative Skin: Positive: Negative Eyes: Positive: Photophobia ENT: Positive: Nasal Discharge, Sinus Congestion, Sinus Pain/Tenderness Respiratory: Positive: Negative Cardiovascular: Positive: Negative Gastrointestinal: Positive: Nausea Genitourinary: Positive: Negative Motor: Positive: Negative Neurovascular: Positive: Negative Musculoskeletal: Positive: Negative Neurological: Positive: Negative Psychological: Positive: Negative Physical Exam Triage Information Reviewed: Yes Appearance: Well-Appearing, No Pain Distress, Well-Nourished Vital Signs: Initial Vital Signs Temp 97 F 03/21/19 19:38 Pulse 60 03/21/19 19:38 Resp 16 03/21/19 19:38 BP 154/89 03/21/19 19:38 Pulse Ox 100 03/21/19 19:38 Vital Signs Reviewed: Yes Eyes: Positive: Conjunctiva Clear, Other: - eomi/perrl ENT Exam: Normal ENT: Positive: Hearing grossly normal, Pharynx normal, Nasal congestion, Nasal drainage, TMs normal, Sinus tenderness, Uvula midline. Negative: Tonsillar swelling, Tonsillar exudate, Trismus, Muffled voice, Hoarse voice Dental Exam: Normal Neck: Positive: Supple, Nontender, No Lymphadenopathy Respiratory: Positive: Lungs clear, Normal breath sounds, No respiratory distress Cardiovascular: Positive: RRR Musculoskeletal: Positive: No Edema Neurological: Positive: Alert, Other: - cn 2-12 intact, normal gait, strenght 5 /5 , sensory intact Psychological Exam: Normal Skin Exam: Normal Headache Course/Dx - Differential Dx/Diagnosis Provider Diagnosis: Migraine, Sinus pressure Discharge ED - Sign-Out/Discharge Documenting (check all that apply): Patient Departure All imaging exams completed and their final reports reviewed: No Studies - Discharge Plan Condition: Stable Disposition: HOME Prescriptions: Fluticasone NASAL SPRAY 50MCG* [Flonase NASAL SPRAY 50MCG*] 2 spray BOTH NARES BID #1 btl Ondansetron TAB* [Zofran Tab*] 4 mg PO Q6H PRN #6 tab PRN Reason: Nausea Patient Education Materials: Migraine Headache (ED), Rhinosinusitis (ED) Forms: *Gen. Provider Communication, *Work Release Referrals: Lion Sharp MD [Primary Care Provider] - 2 Weeks (BP recheck in 2-12 weeks) Additional Instructions: rest ibuprofen use saline nasal spray about five minutes prior to the flonase - Billing Disposition and Condition Condition: STABLE Disposition: Home
== END 2019-03-21 20:04 | disposition home or self-care (01) ==
LOC: UCCORT 19:27
DX: G43.909 Migraine, unspecified, not intractable, without status migrainosus (principal); R09.89 Other specified symptoms and signs involving the circulatory and respiratory systems; R09.81 Nasal congestion
CPT/HCPCS: 99212; A9270-GY; G0463

== ENCOUNTER 2019-04-15 07:55 | Emergency (ER) | payer OTHER ==
[2019-04-15 08:08] VITALS: BP 152/84
--- NOTE | 2019-04-15 08:29 | UC ---
Throat Pain/Nasal Rudy HPI - HPI Summary HPI Summary: 53 yo with 5 day history of progressive sinus pain, ear pain and increasing sore throat. She states that she typically gets severe sinus infections. She has increasing cough, malaise and myalgias. - History of Current Complaint Chief Complaint: UCGeneralIllness Stated Complaint: ST,SINUS,EAR PAIN Time Seen by Provider: 04/15/19 08:21 Hx Obtained From: Patient, Family/Lead Recreation Assistant - here with her spouse Hx Last Menstrual Period: last month after a year and a half not having one Onset/Duration: Gradual Onset, Lasting Days - 5 Severity: Moderate Pain Intensity: 8 Cough: Nonproductive Associated Signs & Symptoms: Positive: Dysphagia, Sinus Discomfort, Nasal Discharge - Epiglottits Risk Factors Epiglottis Risk Factors: Negative - Allergies/Home Medications Allergies/Adverse Reactions: Allergies Allergy/AdvReac Type Severity Reaction Status Date / Time No Known Allergies Allergy Verified 04/15/19 08:08 PMH/Surg Hx/FS Hx/Imm Hx Endocrine History: Hypothyroidism, Dyslipidemia - Surgical History Surgical History: Yes Surgery Procedure, Year, and Place: T&A, RIGHT LEG FRACTURE REPAIR - Family History Known Family History: Positive: Hypertension, Other - no MANAGER HEALTH cancer, Non- Contributory Negative: Blood Disorder - Social History Occupation: Employed Full-time Lives: With Family Alcohol Use: None Substance Use Type: None Smoking Status (MU): Former Smoker When Did the Patient Quit Smoking/Using Tobacco: 2000 Review of Systems All Other Systems Reviewed And Are Negative: Yes Constitutional: Positive: Chills, Fatigue Skin: Positive: Negative Eyes: Positive: Negative ENT: Positive: Sore Throat, Ear Ache, Nasal Discharge, Sinus Congestion, Sinus Pain/Tenderness Respiratory: Positive: Cough Cardiovascular: Positive: Negative. Negative: Chest Pain Gastrointestinal: Positive: Nausea Genitourinary: Positive: Negative Motor: Positive: Negative Neurovascular: Positive: Negative Musculoskeletal: Positive: Myalgia Neurological: Positive: Headache Psychological: Positive: Negative Is Patient Immunocompromised?: No Physical Exam Triage Information Reviewed: Yes Appearance: Ill-Appearing - congested, looks mildly unwell Vital Signs: Initial Vital Signs Temp 98.2 F 04/15/19 08:01 Pulse 80 04/15/19 08:01 Resp 16 04/15/19 08:01 BP 152/84 04/15/19 08:01 Pulse Ox 100 04/15/19 08:01 Eyes: Positive: Conjunctiva Clear ENT: Positive: Pharyngeal erythema, Other - past tonsillectomy; ++ erythema of the posterior pharynx with collection of exudate in the right tonsillar bed. Neck: Positive: Supple, No Lymphadenopathy, Tenderness @ - with light palpation of the anterior chain of nodes. Respiratory: Positive: Lungs clear, Normal breath sounds Cardiovascular: Positive: RRR, No Murmur Musculoskeletal Exam: Normal Neurological Exam: Normal Psychological Exam: Normal Skin Exam: Normal Throat Pain/Nasal Course/Dx - Course Course Of Treatment: augmentin for treatment of sinusitis and possible bacterial pharyngitis. - Differential Dx/Diagnosis Differential Diagnosis/HQI/PQRI: Pharyngitis, Sinusitis, URI Provider Diagnosis: Sinusitis Discharge ED - Sign-Out/Discharge Documenting (check all that apply): Patient Departure All imaging exams completed and their final reports reviewed: No Studies - Discharge Plan Condition: Stable Disposition: HOME Prescriptions: Amoxicillin/Clavulanate TAB* [Augmentin TAB 875*] 875 mg PO BID #20 tab Patient Education Materials: Sinusitis (ED) Forms: *Work Release Referrals: Lion Sharp MD [Primary Care Provider] - Additional Instructions: Your blood pressure is elevated today to 154/84. Please ensure a follow up check of blood pressure within 2 weeks. Please ensure that you take the full course of antibiotics for treatment of sinus infection. Follow up if you have increasing cough or shortness of breath. - Billing Disposition and Condition Condition: STABLE Disposition: Home
== END 2019-04-15 08:45 | disposition home or self-care (01) ==
LOC: UCCORT 07:55
DX: J32.9 Chronic sinusitis, unspecified (principal); R05 Cough; R53.83 Other fatigue; M79.10 Myalgia, unspecified site; H92.09 Otalgia, unspecified ear; Z87.891 Personal history of nicotine dependence
CPT/HCPCS: 99212; G0463

== ENCOUNTER 2019-07-16 11:06 | Emergency (ER) | payer OTHER ==
--- OUTSIDE RECORDS SUMMARY | 2019-07-16 11:14 | XMS REPORT | Summary of Care ---
:1965 Author Organization [facility] Address [address] [facility] [place] [address] Care Team Providers Name Role Phone Agata Rios Primary Care Provider Reason for Referral MRI/CAT/PET Scan (Routine) Status Reason Specialty Diagnoses / Referred By Referred To Procedures Contact Contact Pending Review Diagnoses Vaginal bleeding, abnormal Nowray, Procedures US PELVIC COMPLETE WITH EV PROBE SARIKA Parmar [address] [place] [address] Reason for Visit Reason Comments Follow Up med refill, note for work Encounter Details Date Type Department Care Team Description 05/17/2019 Office Visit [facility] Agata Rios Anxiety (Primary Dx); Practice [employer] Vaginal bleeding, abnormal; [address] [facility] Need for vaccination; [place] [address] Pain medication agreement signed [phone] Allergies Active Allergy Reactions Severity Noted Date Comments Amoxicillin 05/26/2007 Cefuroxime Rash 05/26/2007 Niacin Rash, Respiratory Reaction, 06/08/2008 Swelling Paroxetine Hydrochloride 05/26/2007 documented as of this encounter (statuses as of 05/17/2019) Medications Medication Sig Dispensed Refills Start Date End Date Status atorvastatin Take 1 Tab 90 Tab 3 07/06/2018 Active (LIPITOR) 40 MG by mouth Oral Tab DAILY. fluoxetine (PROZAC) TAKE 1 60 Cap 5 11/16/2018 Active 20 MG Oral CAPSULE BY CapIndications: MOUTH TWICE Dysthymic disorder DAILY levothyroxine Take 1 Tab 90 Tab 5 11/12/2018 Active (SYNTHROID\\UNITHROI by mouth 0 D) 100 MCG Oral Tab BEFORE BREAKFAST. ibuprofen (MOTRIN) Take 1 Tab 90 Tab 5 11/30/2018 Active 800 MG Oral Tab by mouth THREE TIMES DAILY. with food ALPRAZolam (XANAX) Take 1 Tab 30 Tab 0 05/17/2019 Active 1 MG Oral by mouth TabIndications: NEEDED Anxiety (onset anxiety). fluoxetine (PROZAC) Take 1 Cap 60 Cap 5 11/15/2018 Discontinued 20 MG Oral Cap by mouth 0 (Duplicate Order) TWICE DAILY. ALPRAZolam (XANAX) TAKE 1 30 Tab 0 03/02/2019 Discontinued 1 MG Oral Tab TABLET BY 0 (Reorder) MOUTH ONCE DAILY FOR ANXIETY . DO NOT EXCEED 1 PER 24 HOURS documented as of this encounter (statuses as of 05/17/2019) Active Problems Problem Noted Date Pain medication agreement signed 05/17/2019 Anxiety 05/17/2019 BMI 39.0-39.9,adult 12/28/2013 Hypertriglyceridemia 06/08/2008 Unspecified sinusitis (chronic) 05/26/2007 Hypothyroidism 05/26/2007 Depression w/anxiety 05/26/2007 Dyslipidemia 05/26/2007 Lumbar disc disease 05/26/2007 documented as of this encounter (statuses as of 05/17/2019) Resolved Problems Problem Noted Date Resolved Date Cervicalgia 05/26/2007 02/01/2010 Overview: Right sided neck pain Pain in joint, shoulder region 05/26/2007 02/01/2010 Overview: Right sided shoulder pain Nicotine dependence 05/26/2007 02/01/2010 documented as of this encounter (statuses as of 05/17/2019) Immunizations Name Administration Dates Next Due Influenza (IM) Preservative Free 03/01/2019, 07/06/2018, 02/13/2009 Influenza Virus Vaccine - Whole 03/12/2005 TDAP Vaccine 05/17/2019 TETANUS & DIPHTHERIA TOXOID (OVER 7 YRS) [...] Sign Reading Time Taken Comments Blood Pressure 128/72 05/17/2019 11:30 AM EST Pulse 73 05/17/2019 11:30 AM EST Temperature - - Respiratory Rate - - Oxygen Saturation 99% 05/17/2019 11:30 AM EST Inhaled Oxygen Concentration - - Weight 108 kg (238 lb) 05/17/2019 11:30 AM EST Height 167.6 cm (5' 6") 05/17/2019 11:30 AM EST Body Mass Index 38.41 05/17/2019 11:30 AM EST documented in this encounter Patient Instructions Patient InstructionsAgata Rios NP - 05/17/2019 11:20 AM ESTLetter for work is done. Schedule physical and pap. Will order colonoscopy at that time. And tetanus vaccine booster. Refill sent of xanax. Schedule ultrasound. documented in this encounter Progress Notes Agata Rios NP - 05/17/2019 11:20 AM EST PATIENT: Sally Mckoy : 1965 DATE OF SERVICE: 05/17/2019 CHIEF COMPLAINT: Chief Complaint Patient presents with Follow Up med refill, note for work Subjective HISTORY OF PRESENT ILLNESS: Sally Mckoy is a 53-y.o. female. HPI Refill on xanax. Doesn't use very often - takes 1/4 dose when needed. Has been on this med for many years. Her cousin recently , she was close with him. She had hypertension at urgent care, but none today - she thinks anxiety related , will get palpitations and chest pain when anxious. Pain moves around to different spots in her chest - feels like "stress". Not changed for years. Obgyn for postmenopausal bleeding: This is resolved. The last few months will sometimes get discharge like she had pre-menstrual but with no period following. She feels fine. She keeps supplies withher just in case. She did not go to the obgyn because copay is $50. Was worried about having to pay for follow ups. She is on bereavement, needs a letter to go back to work. Never had a colonoscopy. Mammo ordered in August, not scheduled yet. Last pap was 2011 - due for that. Overdue for tdap. Past Medical History: Diagnosis Date Cervicalgia 05/26/2007 [...] Sig ALPRAZolam (XANAX) 1 MG Oral Tab Take 1 Tab by mouth NEEDED (onset anxiety). atorvastatin (LIPITOR) 40 MG Oral Tab Take 1 Tab by mouth DAILY. fluoxetine (PROZAC) 20 MG Oral Cap TAKE 1 CAPSULE BY MOUTH TWICE DAILY ibuprofen (MOTRIN) 800 MG Oral Tab Take [...] Financial resource strain: Not on file Food insecurity Worry: Not on file Inability: Not on file Transportation needs Medical: Not on file Non-medical: Not on file Tobacco Use Smoking status: Former Smoker Last attempt to quit: 07/02/2001 Years since quittin.8 Smokeless tobacco: Never Used Substance and Sexual Activity Alcohol use: No Drug use: No Sexual activity: Yes Partners: Male Lifestyle Physical activity Days per week: Not on file Minutes per session: Not on file Stress: Not on file Relationships Social connections Talks on phone: Not on file Gets together: Not on file Attends church service: Not on file Active member of club or organization: Not on file Attends meetings of clubs or organizations: Not on file Relationship status: Not on file Intimate partner violence Fear of current or ex partner: Not [...] Narrative 7 yr old child Lives in [facility] REVIEW OF SYSTEMS: Review of Systems Constitutional: Negative for chills, fever and malaise/fatigue. Respiratory: Negative for shortness of breath. Cardiovascular: Positive for chest pain (with anxiety) and palpitations (when anxious only - for years). Negative for leg swelling. Gastrointestinal: Negative for abdominal pain, nausea and vomiting. Genitourinary: Negative for dysuria, frequency and urgency. No vaginal bleeding currently Musculoskeletal: Negative for back pain. Neurological: Negative for dizziness and headaches. Psychiatric/Behavioral: Negative for depression, substance abuse and suicidal ideas. The patient is nervous/anxious. Objective PHYSICAL EXAM: VITALS: BP 128/72 (BP Location: Left arm, Patient Position: Sitting) | Pulse 73 | Ht 5' 6" (1.676m) | Wt 238 lb (108 kg) | SpO2 99% | BMI 38.41 kg/m Body mass index is 38.41 kg/m. Physical Exam Vitals signs and nursing note reviewed. Constitutional: General: She is not in acute distress. Appearance: She is well-developed. Cardiovascular: Rate and Rhythm: Normal rate and regular rhythm. Heart sounds: Normal heart sounds. No murmur. No friction rub. No gallop. Pulmonary: Effort: Pulmonary effort is normal. No respiratory distress. Breath sounds: Normal breath sounds. Neurological: Mental Status: She is alert and oriented to person, place, and time. GCS: GCS eye subscore is 4. GCS verbal subscore is 5. GCS motor subscore is 6. Psychiatric: Attention and Perception: She is attentive. Speech: Speech normal. Behavior: Behavior normal. Thought Content: Thought content normal. Judgment: Judgment normal. This report was requested by: Agata Rios | Reference #: [id number] My Prescriptions Patient Name: Sally Mckoy Date: 1965 Address: [address] [place] [address] Sex: Female Rx Written Rx Dispensed Drug Quantity Days Supply Prescriber Name Payment Method Dispenser 03/02/2019 03/03/2019 alprazolam 1 mg tablet 30 30 Agata Rios D [id number] Others' Prescriptions Patient Name: Sally Mckoy Date: 1965 Address: [address] [place] [address] Sex: Female Rx Written Rx Dispensed Drug Quantity Days Supply Prescriber Name Payment Method Dispenser 09/21/2018 09/24/2018 alprazolam 1 mg tablet 30 30 Shilpa Sutherland NP [id number] 08/19/2018 08/19/2018 alprazolam 1 mg tablet 30 30 Lion Sharp R [id number] 07/06/2018 07/06/2018 alprazolam 1 mg tablet 30 30 Shilpa Sutherland [employer] [id number] 06/01/2018 06/03/2018 alprazolam 1 mg tablet 30 30 Lion Sharp R ASSESSMENT / IMPRESSION: ICD-9-CM ICD-10-CM 1. Anxiety 300.00 F41.9 ALPRAZolam (XANAX) 1 MG Oral Tab 2. Vaginal bleeding, abnormal 623.8 N93.9 US PELVIC COMPLETE WITH EV PROBE 3. Need for vaccination V05.9 Z23 NC TET, DIP & ACEL PERTUSSIS(DX Z23) ADMINISTRATION VACCINE SINGLE 4. Pain medication agreement signed V58.69 Z02.89 Plan 1. Vaginal bleeding, abnormal She did not go to obgyn as recommended d/t financial issues with copay -She agrees to do pelvic ultrasound and follow up with obgyn if needed based on results. -She has not had any further occurrences of vaginal bleeding. - US PELVIC COMPLETE WITH EV PROBE; Future 2. Need for vaccination -Update tdap today. - NC TET, DIP & ACEL PERTUSSIS(DX Z23) - ADMINISTRATION VACCINE SINGLE 3. Anxiety -She has been on this medication for many years from her prior PCP - will continue refills. Med useagreement signed today. - ALPRAZolam (XANAX) 1 MG Oral Tab; Take 1 Tab by mouth NEEDED (onset anxiety ). Dispense: 30 Tab; Refill: 0 Health Maintenance Addressed: Colon Cancer Screening: Patient will schedule physical exam and order for colonoscopy then Cervical Cancer Screening: patient to schedule appointment for pap smear Adult Vaccines: Tdap given. Patient Instructions Letter for work is done. Schedule physical and pap. Will order colonoscopy at that time. And tetanus vaccine booster. Refill sent of xanax. Schedule ultrasound. Author: Agata Rios NP 05/17/2019 12:05 documented in this encounter Plan of Treatment Name Type Priority Associated Diagnoses Order Schedule US PELVIC COMPLETE WITH Imaging Routine Vaginal bleeding, Expected: EV PROBE abnormal 05/17/2019, Expires: 05/16/2020 ADMINISTRATION VACCINE Procedures Routine Need for vaccination Ordered: SINGLE 05/17/2019 Health Maintenance Due Date Last Done Comments DTaP/Tdap/Td Vaccines (2 - 07/13/2007 07/12/1997 Tdap) PAP SMEAR 11/23/2014 11/24/2011, 11/24/2011, 02/01/2010, Additional history exists MAMMOGRAM (SCREENING) 12/28/2014 12/28/2013, 12/28/2013, 06/29/2012, Additional history exists Colonoscopy 12/25/2015 ZOSTER IMMUNIZATION SERIES 12/25/2015 (1 of 2) DIABETES SCREENING 11/12/2019 11/11/2018, 02/16/2018, 12/28/2013 DEPRESSION SCREENING 01/19/2020 01/18/2019 LIPID DISORDER SCREENING 11/12/2023 11/11/2018, 07/06/2018, 06/17/2018, Additional history exists INFLUENZA VACCINE Completed 03/01/2019, 07/06/2018, 02/13/2009 HEPATITIS A IMMUNIZATION Aged Out No longer eligible SERIES based on patient's age to complete this topic HPV IMMUNIZATION SERIES Aged Out No longer [...] filedocumented in this encounter Visit Diagnoses Diagnosis Vaginal bleeding, abnormal Other specified noninflammatory disorder of vagina Need for vaccination Need for prophylactic vaccination and inoculation against unspecified single disease Anxiety Anxiety state, unspecified Pain medication agreement signed Encounter for long-term (current) use of other medications documented in this encounter Insurance Payer Benefit Plan / Subscriber ID Effective Dates Phone Address Type Group TERRENCE [employer] ESSENTIAL xxxxxxxxxxx 2019-Present [employer]rence [employer] Guarantor Name Account Type Relation to Date of Phone Billing Patient Address Sally Mckoy Personal/Family 1965 [address] (Home) [place], [place] [phone] (Work) documented as of this encounter
[2019-07-16 11:29] VITALS: BP 180/88
--- NOTE | 2019-07-16 12:10 | UC ---
Respiratory Complaint HPI - HPI Summary HPI Summary: Reports a few days of sinus infxn. Missed days at work and now her job needs a letter. Has had fevers, ortega, sneezing, congestion, runny nose, some productive cough. patient denies travel anywhere in the last 30 days, exposure to someone who's tested positive to COVID-19, shortness of breath, or weakness. - History of Current Complaint Chief Complaint: UCRespiratory Stated Complaint: HEADACHE, CONGESTION, COUGH, FEVER, EAR COMPLAINT Time Seen by Provider: 07/16/19 12:04 Hx Obtained From: Patient Hx Last Menstrual Period: last month after a year and a half not having one Pain Intensity: 5 Pain Scale Used: 0-10 Numeric Aggravating Factors: Nothing Alleviating Factors: Nothing - Allergies/Home Medications Allergies/Adverse Reactions: Allergies Allergy/AdvReac Type Severity Reaction Status Date / Time Adhesive Tape Allergy Rash Verified 07/16/19 11:23 Home Medications: Home Medications FLUoxetine CAP* [Prozac CAP*] 40 mg PO QPM 08/04/12 [History Confirmed 07/16/19] Levothyroxine TAB* [Synthroid 25 MCG TAB*] 100 mcg PO QPM 08/04/12 [History Confirmed 07/16/19] ALPRAZolam [Xanax] 0.5 mg PO DAILY PRN 10/13/18 [History Confirmed 07/16/19] Atorvastatin* [Lipitor*] 20 mg PO QPM 10/13/18 [History Confirmed 07/16/19] Benzonatate CAP* [Tessalon 100 MG CAP*] 100 mg PO TID 7 Days #21 cap 07/16/19 [ Rx] PMH/Surg Hx/FS Hx/Imm Hx Previously Healthy: Yes Endocrine History: Thyroid Disease Cardiovascular History: Cardiac Disease - Surgical History Surgical History: Yes Surgery Procedure, Year, and Place: T&A, RIGHT LEG FRACTURE REPAIR - Family History Known Family History: Positive: Hypertension, Other - no OPTHALMIC TECH cancer, Non- Contributory Negative: Blood Disorder - Social History Alcohol Use: None Substance Use Type: None Smoking Status (MU): Former Smoker When Did the Patient Quit Smoking/Using Tobacco: 2000 Review of Systems All Other Systems Reviewed And Are Negative: Yes Constitutional: Positive: Fever. Negative: Chills, Fatigue ENT: Positive: Nasal Discharge, Sinus Congestion, Sinus Pain/Tenderness. Negative: Sore Throat, Ear Ache Respiratory: Positive: Cough. Negative: Shortness Of Breath, Other - denies sob. Cardiovascular: Negative: Palpitations, Chest Pain Gastrointestinal: Negative: Vomiting, Diarrhea Neurological/Mental Status: Negative: Headache Physical Exam Triage Information Reviewed: Yes Appearance: Well-Appearing Vital Signs: Initial Vital Signs Temp 98.7 F 07/16/19 11:17 Pulse 80 07/16/19 11:17 Resp 16 07/16/19 11:17 BP 180/88 07/16/19 11:17 Pulse Ox 100 07/16/19 11:17 Vital Signs Reviewed: Yes ENT: Positive: Pharynx normal, Nasal congestion, TMs normal, Uvula midline. Negative: Sinus tenderness Neck exam: Normal Respiratory Exam: Normal Cardiovascular Exam: Normal Neurological: Positive: Alert Skin: Negative: Rashes Respiratory Course/Dx - Course Course Of Treatment: sinusisits, acute, w/ good vitals and afebrile. exam essentially unremarkable. RAPID FLU negative. Will give meds for symptoms. return if worsening. low risk for covid. - Differential Dx/Diagnosis Differential Diagnosis/HQI/PQRI: Lower Resp Infection, Sinusitis, Other Provider Diagnosis: Viral sinusitis Discharge ED - Sign-Out/Discharge Documenting (check all that apply): Patient Departure All imaging exams completed and their final reports reviewed: No Studies - Discharge Plan Condition: Good Disposition: HOME Prescriptions: Benzonatate CAP* [Tessalon 100 MG CAP*] 100 mg PO TID 7 Days #21 cap Patient Education Materials: Viral Syndrome (ED) Forms: *Work Release Referrals: Lion Sharp MD [Primary Care Provider] - - Billing Disposition and Condition Condition: GOOD Disposition: Home
[2019-07-16 12:24] LABS: Influenza A Molecular Negative (Negative); Influenza B Molecular Negative (Negative)
== END 2019-07-16 12:47 | disposition home or self-care (01) ==
LOC: UCCORT 11:06
DX: J32.9 Chronic sinusitis, unspecified (principal); B97.89 Other viral agents as the cause of diseases classified elsewhere; Z91.09 Other allergy status, other than to drugs and biological substances; Z79.890 Hormone replacement therapy; E07.9 Disorder of thyroid, unspecified; Z87.891 Personal history of nicotine dependence
CPT/HCPCS: 99212; G0463